=== PATIENT | female | born 1970 | race Caucasian/White ===

== ENCOUNTER → 2021-01-14 | Outpatient (CLI) | payer OTHER ==
[2020-11-06 09:52] VITALS: BP 127/80
--- NOTE | 2021-01-14 12:51 | RAD ---
EXAM: Cervical spine, 4 views. HISTORY: Pain. COMPARISON: None. FINDINGS: Frontal, lateral, flexion and extension views of the cervical spine are obtained. There is instrumented intraspinal fusion and interbody fusion at C5-C6. There is no motion at the fused levels between action and extension. There is mild endplate remodeling primarily at C4-C5. There are tiny i ncidental cervical ribs. IMPRESSION: 1. Instrumented fusion at C5-C6. There is no evidence of instrumentation loosening. 2. Multilevel endplate remodeling, primarily at C4-C5. 3. Tiny incidental cervical ribs. Electronically signed by: Sonal Trimble MD (01/14/2021 12:49 PM) [id number]
== END ==
LOC: RAD 11:56
PROVIDERS: ATTEND Family Medicine
DX: M54.12 Radiculopathy, cervical region (principal)
CPT/HCPCS: 72050